=== PATIENT | female | born 1965 ===

== ENCOUNTER 2025-08-09 13:41 | Outpatient (AMB) | payer BC, SELFPAY ==
--- NOTE | 2025-08-09 13:44 | MHC.OFFVIS ---
Vital Signs 08/09/25 13:56 Height 5 ft 1 in Weight 131 lb BMI 24.7 BP 148/100 H Blood Pressure Location Rt brachial Position Sitting Respiration 16 Pulse 95 Pulse Source Pulse Oximeter Pulse Oximetry (%) 98 Oxygen Delivery Method Room Air Intake Visit Reasons: Seizures Infection Control Practitioner Required: No Accompanied by: Son Allergies No Known Allergies Allergy (Unverified 08/09/25 13:56) HPI Comments Details: Laura is a 59-year-old female patient with a past medical history of hypertension, stage 3 kidney disease, mixed hyperlipidemia who is here today for an evaluation of seizures. According to the patient today, she used to see . She believes that she last saw him in 2008. She was having 1-2 seizure events per month but does not remember ever having been on any AEDs. She had been seizure free for many years and had not been following with neurology. This Sheryl however she had a loss of consciousness and shaking event witnessed by her daughter. According to her daughter at the time of her ER visit, her mother had felt hot and had mentioned some pinkish urine and discomfort. Her daughter has been helping her to the car to lay down when her mother had a turning of her head and loss of awareness with generalized shaking lasted approximately 10 minutes according to her daughter. After the event, she vomited twice and was completely amnestic to the event. During her emergency room visit, her workup was significant for a urinary tract infection and she was treated with antibiotics. She has not had any further seizure activity, staring episodes, tonic-clonic events, loss of awareness, tongue biting, or alterations in consciousness. She reports that overall she is relatively healthy and takes medication for her blood pressure and is currently on Zepbound injections. Aside from this, she is only taking an [id number] sleep aid. She is not currently driving and currently works from home and has a very supportive family who helps her get around where she needs to go. Social/backround: Lives home with son and Tobacco: None ETOH: Rare Substance use: None Sleep: Has a good sleep regimen and gets about 7-8hours per night. She takes a dyphenhydramine sleep aid nightly. [facility] Medical History (Updated 08/09/25 @ 14:15 by Aspen Hickman CNP) Stage 3 chronic kidney disease Hypertension Seizures Review of Systems Const All systems reviewed & are unremarkable except as noted in HPI and below Physical Exam Vital Signs: Last Vital Signs Pulse 95 08/09/25 13:56 Resp 16 08/09/25 13:56 BP 148/100 H 08/09/25 13:56 Pulse Ox 98 08/09/25 13:56 Oxygen Delivery Method Room Air 08/09/25 13:56 BMI result Body Mass Index 24.7 Const General: cooperative, healthy appearing, comfortable and no acute distress Nutritional Appearance: well nourished Orientation/consciousness: patient oriented x3 Limitations: no limitations HEENT Head: Yes normal to inspection and Yes normocephalic Eyes General: appearance normal, both eyes and all related structures Visual Salter: normal visual salter by confrontation Alignment and Position: alignment normal Periorbital: periorbital findings normal Eyelids: Yes eyelids normal Conjunctivae: conjunctivae normal Sclerae: sclerae normal Neuro General: patient oriented x3 Cranial nerves: Yes CN's II-XII intact bilaterally and Yes Facial sensation intact/muscles of mastication intact Cognition (Neuro): normal cognition Gait exam (Neuro): Normal gait present Motor exam (neuro): 5/5 motor strength present throughout and no tremor noted Sensory Exam: double simultaneous stimulation for sensation normal Deep tendon reflexes (DTR's): Right triceps reflex intensity grade: 3+, Left triceps reflex intensity grade: 3+, Rt Biceps (C5, C6): 3+, Left biceps reflex intensity grade: 3+, Right brachioradialis reflex intensity grade: 3+, Left brachioradialis reflex intensity grade: 3+, Right patellar reflex intensity grade: 3+, Left patellar reflex intensity grade: 3+, Right ankle reflex intensity grade: 3+ and Left ankle reflex intensity grade: 3+ Romberg Test: Negative Pupils: Normal pupillary reactivity/response: bilateral Psych Appearance: grossly normal Mental Status: mental status grossly normal Speech and movement: Normal speech and movement present and Clear speech present Affect: normal affect Attitude: cooperative Thought process: Normal thought process present Thought content: Normal thought content present Insight: Good insight present (Psych) Judgement: Good judgement present (Psych) Assessment & Plan Assessment & Plan (1) Seizures: Code(s): R56.9 - Unspecified convulsions Category: Medical Plan Laura is a 59-year-old female patient with a past medical history of hypertension, stage 3 kidney disease, mixed hyperlipidemia who is here today for an evaluation of seizures. Laura does have a notable history of seizure events for which she saw Dr. West in the past but I am unable to recover notes from this. She has not seen him in aproximally 16 years and has not had any seizure events since this time. She has not detailed in her history of seizure and can not really describe her previous events in depth and does not have any reason for the seizure events in the past. She does however mentioned she has not ever been placed on antiepileptic medication. This seizure event she had most recently does sound characteristic of a true seizure event in the setting of a urinary tract infection. Because this seizure was obviously provoked by infection, we likely have time to perform an EEG before making considerations about antiepileptics. In the meantime, I will also try to recover previous notes triggered a better sense of her seizure history. -EEG routine -6 week follow-up or sooner if needed Orders: Orders EEG Routine Today R56.9 - Unspecified convulsions Coding Level of Care Code New Pt Level 4 (80078) Diagnoses Seizures R56.9
[2025-08-09 13:56] VITALS: BP 148/100; PULSE 95; RESP 16; O2SAT 98; BMI 24.7
== END 2025-08-09 14:24 | disposition home or self-care (01) ==
LOC: HO.HSM 13:41
PROVIDERS: PCP Internal Medicine; Visit Provider Nurse Practitioner
DX: R56.9 Unspecified convulsions (principal)
CPT/HCPCS: 99204